=== PATIENT | male | born 1995 | race African-American/Black ===

== ENCOUNTER → 2016-06-02 | Outpatient (CLI) | payer OTHER ==
[~2016-06-02] MED LIST: METHACHOLINE KIT (J7674) INH ONE
== END ==
LOC: M CARPUL 07:57
PROVIDERS: ATTEND Nurse Practitioner Adult Health
DX: R05 Cough (principal)

== ENCOUNTER → 2016-09-27 | Outpatient (REF) | payer OTHER ==
[2016-09-30 00:07] LABS: E005-IgE Dog Dander 0.84 kU/L (Class II); G002-IgE Bermuda Grass 0.12 kU/L (Class 0/I); G008-IgE Kentucky Bluegrass 0.13 kU/L (Class 0/I); M001-IgE Penicillium chrysogen 1.07 kU/L (Class II); M002 IgE Cladosporium herbaru 5.38 kU/L (Class IV); M003 IgE Aspergillus fumigatu 6.34 kU/L (Class IV); T001-IgE Maple/Box Elder 1.68 kU/L (Class III); T007-IgE Oak, White 0.47 kU/L (Class I); T008-IgE Elm, American 0.96 kU/L (Class II); T015-IgE Ash, White 3.34 kU/L (Class III); T041-IgE Hickory, White 2.04 kU/L (Class III); W001-IgE Ragweed, Short 1.26 kU/L (Class II); W009-IgE Plantain, English 0.14 kU/L (Class 0/I); W014-IgE Pigweed, Rough 0.71 kU/L (Class II); W018-IgE Sheep Sorrel 0.21 kU/L (Class 0/I)
== END ==
LOC: M LAB REF 13:12
PROVIDERS: ATTEND Nurse Practitioner Adult Health
DX: J45.40 Moderate persistent asthma, uncomplicated (principal)